=== PATIENT | female | born 1970 | race Two or more races ===

== ENCOUNTER → 2017-04-10 | Outpatient (CLI) | payer BC ==
--- NOTE | ~2017-04-10 | MY29 ---
[facility] A Service of [facility] RADIOLOGY TEXT RESULTS PATIENT: TARIK ANDERSON LOCATION: [facility] : [birth year] UNIT #: [id number] AGE: [address]: TYRONE GRAVES APRN SEX: F ORDER DR: [id number] [facility] [address] [place], [place] [address] [id number] O MR#: [id number] Acc #: [id number] NAME: TARIK ANDERSON : 1970 SEX: F STUDY DATE/TIME: 04/10/2017 14:54 UNIT: [facility] ROOM: STUDY DESCRIPTION: MY EDGAR SCREENING W/ CAD BILAT Attending Physician: Deonna Graves M.D. Referring Physician: Deonna Graves M.D. Ordering Physician: Deonna Graves M.D. Primary Care Physician: Rick Pedroza M.D. MEDICAL IMAGING REPORT This report is preliminary unless electronic signature is present EXAM Digital screening mammogram, 04/10/2017, [facility]. HISTORY 47-year-old woman, no risk elevation. Annual screen. COMPARISON Mammograms 01/18/2015, 03/25/2016. FINDINGS Digital imaging of each breast was completed utilizing standard craniocaudal and mediolateral-oblique projections. Review and interpretation of digital mammograms include a second review in conjunction with FDA-approved CAD device. There is an overall increase in the parenchymal presentation bilaterally with a generalized fibronodular pattern in each breast. There are no breast masses and I see no asymmetry in the parenchymal presentation. There are no suspicious microcalcifications and I see no architectural disturbance. IMPRESSION Benign mammogram. One-year followup recommended. Patients over the age of 40 are entered into a reminder system with target due date for the next mammogram. A result letter will also be sent to the patient. BIRADS: 2 Benign finding Dictated by... Marco Antonio Herrera M.D. [facility] A Service of [facility] RADIOLOGY TEXT RESULTS PATIENT: TARIK ANDERSON LOCATION: [facility] : [birth year] UNIT #: [id number] AGE: [address]: TYRONE GRAVES APRN SEX: F ORDER DR: THIS IS AN ELECTRONICALLY VERIFIED REPORT Marco Antonio Herrera M.D. at 04/11/2017 12:22 PM Diana TD: 04/11/2017 10:51 JOB #: [id number] MEDICAL IMAGING REPORT Page 1 of 1 COPY
== END | disposition home or self-care (01) ==
LOC: CWCC 14:36
DX: Z12.31 Encounter for screening mammogram for malignant neoplasm of breast (principal)
CPT/HCPCS: G0202